=== PATIENT | male | born 1945 | race Caucasian/White ===

== ENCOUNTER → 2018-01-09 10:00 | Outpatient (CLI) | payer MEDICARE, SELFPAY ==
[2018-01-09 10:30] LABS: INR 1.8 (1.0-3.5); Prothrombin Time 17.6 sec (9.3-10.8)
== END ==
PROVIDERS: PCP Internal Medicine; Visit Provider Internal Medicine Cardiovascular Disease
DX: I48.0 Paroxysmal atrial fibrillation (principal); Z79.01 Long term (current) use of anticoagulants
CPT/HCPCS: 36415; 85610

== ENCOUNTER → 2018-01-22 09:30 | Outpatient (CLI) | payer MEDICARE, SELFPAY ==
[2018-01-22 09:57] LABS: INR 1.9 (1.0-3.5); Prothrombin Time 18.4 sec (9.3-10.8)
== END ==
PROVIDERS: PCP Internal Medicine; Visit Provider Internal Medicine Cardiovascular Disease
DX: I48.0 Paroxysmal atrial fibrillation (principal); Z79.01 Long term (current) use of anticoagulants
CPT/HCPCS: 36415; 85610

== ENCOUNTER → 2018-01-29 08:45 | Outpatient (CLI) | payer MEDICARE, SELFPAY ==
[2018-01-29 09:31] LABS: Prothrombin Time 24.1 sec (9.3-10.8)
[2018-01-29 09:33] LABS: INR 2.5 (1.0-3.5)
== END ==
PROVIDERS: PCP Internal Medicine; Visit Provider Internal Medicine Cardiovascular Disease
DX: I48.0 Paroxysmal atrial fibrillation (principal); Z79.01 Long term (current) use of anticoagulants
CPT/HCPCS: 36415; 85610

== ENCOUNTER 2018-02-20 08:50 | Outpatient (CLI) | payer MEDICARE, SELFPAY ==
[2018-02-20 09:25] LABS: INR 2.7 (1.0-3.5); Prothrombin Time 25.5 sec (9.3-10.8)
== END 2018-02-20 09:10 ==
PROVIDERS: PCP Internal Medicine; Referring Provider Internal Medicine; Visit Provider Internal Medicine Cardiovascular Disease
DX: I48.0 Paroxysmal atrial fibrillation (principal); Z79.01 Long term (current) use of anticoagulants
CPT/HCPCS: 36415; 85610

== ENCOUNTER 2018-03-26 11:29 | Outpatient (CLI) | payer MEDICARE, SELFPAY ==
[2018-03-26 12:30] LABS: Prothrombin Time 33.1 sec (9.3-10.8)
[2018-03-26 12:37] LABS: INR 3.5 (1.0-3.5)
== END 2018-03-26 11:49 ==
PROVIDERS: PCP Internal Medicine; Referring Provider Internal Medicine Cardiovascular Disease; Visit Provider Internal Medicine
DX: I48.92 Unspecified atrial flutter (principal); Z95.2 Presence of prosthetic heart valve; Z79.01 Long term (current) use of anticoagulants
CPT/HCPCS: 36415; 85610

== ENCOUNTER 2018-04-12 10:45 | Outpatient (CLI) | payer MEDICARE, SELFPAY ==
[2018-04-12 11:25] LABS: INR 1.7 (1.0-3.5); Prothrombin Time 16.5 sec (9.3-10.8)
== END 2018-04-12 11:05 ==
PROVIDERS: PCP Internal Medicine; Referring Provider Internal Medicine; Visit Provider Internal Medicine Cardiovascular Disease
DX: I48.92 Unspecified atrial flutter (principal); Z95.2 Presence of prosthetic heart valve; Z79.01 Long term (current) use of anticoagulants
CPT/HCPCS: 36415; 85610

== ENCOUNTER 2018-04-30 08:43 | Outpatient (CLI) | payer MEDICARE, SELFPAY ==
[2018-04-30 09:32] LABS: INR 2.2 (1.0-3.5); Prothrombin Time 20.7 sec (9.3-10.8)
== END 2018-04-30 09:03 ==
PROVIDERS: PCP Internal Medicine; Referring Provider Internal Medicine; Visit Provider Internal Medicine Cardiovascular Disease
DX: Z95.2 Presence of prosthetic heart valve (principal); I48.92 Unspecified atrial flutter; Z79.01 Long term (current) use of anticoagulants
CPT/HCPCS: 36415; 85610

== ENCOUNTER 2018-05-19 07:46 | Outpatient (CLI) | payer MEDICARE, SELFPAY ==
[2018-05-19 08:33] LABS: Prothrombin Time 20.4 sec (9.3-11.0)
== END 2018-05-19 08:06 ==
PROVIDERS: PCP Internal Medicine; Visit Provider Internal Medicine Cardiovascular Disease
DX: I48.92 Unspecified atrial flutter (principal); Z79.01 Long term (current) use of anticoagulants; Z95.2 Presence of prosthetic heart valve
CPT/HCPCS: 36415; 85610

== ENCOUNTER 2018-06-24 09:24 | Outpatient (CLI) | payer MEDICARE, SELFPAY ==
[2018-06-24 10:46] LABS: INR 2.4 (0.9-1.1)
== END 2018-06-24 09:44 ==
PROVIDERS: PCP Internal Medicine; Visit Provider Internal Medicine Cardiovascular Disease
DX: I48.92 Unspecified atrial flutter (principal); Z95.2 Presence of prosthetic heart valve
CPT/HCPCS: 36415; 85610

== ENCOUNTER 2018-08-18 08:44 | Outpatient (CLI) | payer MEDICARE, SELFPAY ==
[2018-08-18 09:11] LABS: Prothrombin Time 34.9 sec (9.3-11.0)
[2018-08-18 09:16] LABS: INR 3.4 (0.9-1.1)
== END 2018-08-18 09:04 ==
PROVIDERS: PCP Internal Medicine; Referring Provider Internal Medicine Cardiovascular Disease; Visit Provider Internal Medicine
DX: I48.92 Unspecified atrial flutter (principal); Z95.2 Presence of prosthetic heart valve
CPT/HCPCS: 36415; 85610

== ENCOUNTER 2018-08-28 10:05 | Outpatient (CLI) | payer MEDICARE, SELFPAY ==
[2018-08-28 10:43] LABS: INR 3.1 (0.9-1.1); Prothrombin Time 31.5 sec (9.3-11.0)
== END 2018-08-28 10:25 ==
PROVIDERS: PCP Internal Medicine; Referring Provider Internal Medicine Cardiovascular Disease; Visit Provider Internal Medicine
DX: I48.92 Unspecified atrial flutter (principal); Z95.2 Presence of prosthetic heart valve; Z79.01 Long term (current) use of anticoagulants
CPT/HCPCS: 36415; 85610

== ENCOUNTER 2018-09-15 08:19 | Outpatient (CLI) | payer MEDICARE, SELFPAY ==
[2018-09-15 09:30] LABS: INR 1.4 (0.9-1.1); Prothrombin Time 14.5 sec (9.3-11.0)
== END 2018-09-15 08:39 ==
PROVIDERS: PCP Internal Medicine; Referring Provider Internal Medicine; Visit Provider Internal Medicine Cardiovascular Disease
DX: I48.92 Unspecified atrial flutter (principal); Z95.2 Presence of prosthetic heart valve; Z79.01 Long term (current) use of anticoagulants
CPT/HCPCS: 36415; 85610

== ENCOUNTER 2018-10-07 09:20 | Outpatient (CLI) | payer MEDICARE, SELFPAY ==
[2018-10-07 10:15] LABS: INR 2.4 (0.9-1.1); Prothrombin Time 24.6 sec (9.3-11.0)
== END 2018-10-07 09:40 ==
PROVIDERS: PCP Internal Medicine; Referring Provider Internal Medicine; Visit Provider Internal Medicine Cardiovascular Disease
DX: I48.92 Unspecified atrial flutter (principal); Z95.2 Presence of prosthetic heart valve; Z79.01 Long term (current) use of anticoagulants
CPT/HCPCS: 36415; 85610

== ENCOUNTER 2018-11-10 08:31 | Outpatient (CLI) | payer MEDICARE, SELFPAY ==
[2018-11-10 09:07] LABS: Prothrombin Time 40.2 sec (9.3-11.0)
== END 2018-11-10 08:51 ==
PROVIDERS: PCP Internal Medicine; Visit Provider Internal Medicine Cardiovascular Disease
DX: Z79.01 Long term (current) use of anticoagulants (principal); I48.92 Unspecified atrial flutter; Z95.2 Presence of prosthetic heart valve
CPT/HCPCS: 36415; 85610

== ENCOUNTER 2018-11-28 07:55 | Outpatient (CLI) | payer MEDICARE, SELFPAY ==
[2018-11-28 08:48] LABS: Prothrombin Time 30.3 sec (9.3-11.0)
== END 2018-11-28 08:15 ==
PROVIDERS: Internal Medicine Cardiovascular Disease; PCP Internal Medicine; Referring Provider Internal Medicine; Visit Provider Internal Medicine
DX: I48.92 Unspecified atrial flutter (principal); Z95.2 Presence of prosthetic heart valve; Z79.01 Long term (current) use of anticoagulants
CPT/HCPCS: 36415; 85610

== ENCOUNTER 2018-12-23 09:46 | Outpatient (CLI) | payer MEDICARE, SELFPAY ==
[2018-12-23 11:13] LABS: INR 2.4 (0.9-1.1); Prothrombin Time 24.6 sec (9.3-11.0)
== END 2018-12-23 10:06 ==
PROVIDERS: PCP Internal Medicine; Visit Provider Internal Medicine Cardiovascular Disease
DX: I48.92 Unspecified atrial flutter (principal); Z95.2 Presence of prosthetic heart valve; Z79.01 Long term (current) use of anticoagulants
CPT/HCPCS: 36415; 85610

== ENCOUNTER 2019-01-21 09:32 | Outpatient (CLI) | payer MEDICARE, SELFPAY ==
[2019-01-21 10:49] LABS: Prothrombin Time 19.8 sec (9.3-11.0)
== END 2019-01-21 09:52 ==
PROVIDERS: PCP Internal Medicine; Referring Provider Internal Medicine; Visit Provider Internal Medicine Cardiovascular Disease
DX: I48.92 Unspecified atrial flutter (principal); Z79.01 Long term (current) use of anticoagulants; Z95.2 Presence of prosthetic heart valve
CPT/HCPCS: 36415; 85610

== ENCOUNTER 2019-02-24 09:49 | Outpatient (CLI) | payer MEDICARE, SELFPAY ==
[2019-02-24 10:42] LABS: INR 2.3 (0.9-1.1); Prothrombin Time 22.6 sec (9.3-11.0)
== END 2019-02-24 10:09 ==
PROVIDERS: PCP Internal Medicine; Visit Provider Internal Medicine Cardiovascular Disease
DX: I48.92 Unspecified atrial flutter (principal); Z79.01 Long term (current) use of anticoagulants
CPT/HCPCS: 36415; 85610

== ENCOUNTER 2019-03-25 09:04 | Outpatient (CLI) | payer MEDICARE, SELFPAY ==
[2019-03-25 10:18] LABS: INR 1.6 (0.9-1.1); Prothrombin Time 16.4 sec (9.3-11.0)
== END 2019-03-25 09:24 ==
PROVIDERS: PCP Internal Medicine; Visit Provider Internal Medicine Cardiovascular Disease
DX: I48.92 Unspecified atrial flutter (principal); Z79.01 Long term (current) use of anticoagulants
CPT/HCPCS: 36415; 85610

== ENCOUNTER 2019-04-06 07:48 | Outpatient (CLI) | payer MEDICARE, SELFPAY ==
[2019-04-06 08:33] LABS: INR 3.1 (0.9-1.1); Prothrombin Time 30.3 sec (9.3-11.0)
== END 2019-04-06 08:08 ==
PROVIDERS: PCP Internal Medicine; Referring Provider Internal Medicine; Visit Provider Internal Medicine Cardiovascular Disease
DX: I48.92 Unspecified atrial flutter (principal); Z79.01 Long term (current) use of anticoagulants
CPT/HCPCS: 36415; 85610

== ENCOUNTER 2019-05-04 10:20 | Outpatient (CLI) | payer MEDICARE, SELFPAY ==
[2019-05-04 10:53] LABS: INR 2.3 (0.9-1.1); Prothrombin Time 22.3 sec (9.3-11.0)
== END 2019-05-04 10:40 ==
PROVIDERS: PCP Internal Medicine; Referring Provider Internal Medicine; Visit Provider Internal Medicine Cardiovascular Disease
DX: I48.92 Unspecified atrial flutter (principal); Z79.01 Long term (current) use of anticoagulants
CPT/HCPCS: 36415; 85610

== ENCOUNTER 2019-06-02 12:27 | Emergency (ER) | payer MEDICARE, SELFPAY ==
[2019-06-02] VITALS (7 sets, daily range): BP systolic 96–121; BP diastolic 41–74; PULSE 74–78; RESP 16–20; TEMP 36.8–38.1; O2SAT 94–98
[2019-06-02] MEDS: Normal Saline 1,000 ML 1000 ML IV (13:00)
[2019-06-02 13:13] LABS: Abs Immature Grans 0.02 k/cumm (0.0-0.09); Absolute Basophil Count 0.01 k/cumm (0.0-0.2); Absolute Eosinophil Count 0.01 k/cumm (0.0-0.7); Absolute Lymphocyte Count 0.31 k/cumm (1.2-3.4); Absolute Monocyte Count 0.42 k/cumm (0.11-0.7); Absolute Neutrophil Count 3.99 k/cumm (1.2-6.7); Basophils % 0.2; Eosinophils % 0.2; HCT 35.5 % (40.0-50.0); HGB 12.7 g/dL (13.5-17.5); Immature Grans % 0.4; Lymphocytes % 6.5; Mean Corp. HGB Concentration 35.8 g/dL (32.0-36.0); Mean Corpuscular Hemoglobin 31.4 pg (27.0-33.0); Mean Corpuscular Volume 87.9 fL (80-95); Mean Platelet Volume 10.9 fL (8.0-11.0); Monocytes % 8.8; Neutrophils % 83.9; Platelet Count 105 x1000/uL (130-400); RBC 4.04 m/cumm (4.50-6.00); RBC Distribution Width 12.8 % (11.8-14.1); White Blood Cell Count 4.76 k/cumm (4.4-10.8)
[2019-06-02 14:03] LABS: ALT 49 U/L (16-63); AST 57 U/L (15-37); Albumin 2.7 g/dL (3.4-5.0); Alkaline Phosphatase 228 U/L (46-116); Anion Gap 9.7 mmol/L (3-11); BUN 28 mg/dL (7-18); Bilirubin, Total 2.5 mg/dL (0.2-1.0); CO2 27.3 mmol/L (21.0-32.0); CREATININE 1.37 mg/dL (0.70-1.30); Chloride 94 mmol/L (98-107); Estimated GFR 50.66 (mL/min/1.73m2); Glucose 209 mg/dL (74-106); Magnesium 1.7 mg/dL (1.8-2.4); Potassium 4.3 mmol/L (3.5-5.1); Sodium 131 mmol/L (136-145)
[2019-06-02 14:06] LABS: Troponin I < 0.05 ng/Ml (<0.06)
--- NOTE | 2019-06-02 14:48 | W.ED.GENAD ---
Discharge Plan Disposition Patient Disposition: HOME Condition: Improving Discharge Details Chief Complaint: GenMedical Clinical Impression: Sphenoid sinusitis, Headache Primary Care Provider: Brendan Bledsoe ED Provider: Laury Leslie Home Meds and New Rx's Prescriptions: New prednisone 20 mg tablet See Rx Instructions .ROUTE .COMPLEX Qty: 9 RF: 0 Continued warfarin [Coumadin] 2.5 MG tablet 2.5 mg PO DIRECTED RF: 0 aspirin [Aspirin Low-Strength] 81 MG tablet,chewable 81 mg PO DAILY RF: 0 amoxicillin 875 mg Tablet 875 mg PO TID RF: 0 Discharge Instructions Instructions: Sinusitis (ED), General Headache (ED) Additional Instructions: Take the antibiotics until finished. Take the steroids until finished. Drink plenty of fluids and get plenty of rest. Follow-up with your primary care doctor in the next 2 to 3 days. Return to the emergency department with any worsening or new concerning symptoms such as persistent fevers, worsening headache, dizziness or any other concerns. Discharge Data Discharge Date/Time-TO BE ENTERED AT DEPARTURE: 06/02/19 18:29 Discharge Physician: Laury Leslie Medical Decision Making 73-year-old male with a history of aortic stenosis and aortic valve replacement on Coumadin presents for headache and dizziness with ambulation resulting in falls over the last 5 days. Denies any report of injury. He states his headache is intermittent, stabbing and localized to 2 sides of the head, one behind L ear and one behind right ear. He states the pain lasts for approximately 10 seconds and then resolves but causes an involuntary twitch in his face due to the pain. Admits to feeling feverish. Admits to nasal congestion chronically but states he feels like this is been worse over the past few days. Patient appears uncomfortable, restless on stretcher. Vitals within normal limits. Normal ENT exam. Lungs clear. Abdomen nontender. No focal deficits. No meningeal signs. Patient referred for labs and imaging. INR therapeutic at 2.6. Urinalysis not impressive for UTI. CT head notes chronic changes status post craniectomy with encephalomalacia with new findings of sphenoid sinusitis. Chest x-ray noted increased pulmonary vasculature as well as left basilar opacity which may be atelectasis or infection. He has no complaint of cough, shortness of breath or chest pain so doubt pneumonia but antibiotics for sinus will cover for lung process. Patient was given IV fluids, Decadron, Compazine and Benadryl and had significant relief of pain. He developed a fever of 100.5, and was given Tylenol. Patient was able to ambulate around the ED and admitted to significant improvement and was able to ambulate without dizziness. He was requesting to go home. He has Augmentin at home which she is advised to finish. Will add steroids to help for the next several days. He is advised to follow-up with his primary care doctor for evaluation and to return here at any time if worse. Medical Records Medical records reviewed: Yes I reviewed the patient's medical records. Imaging Data Radiologic Study: Radiologist's impression: CT HEAD WO CLINICAL HISTORY: headache, r/o acute process TECHNIQUE: COMPARISON: No exams were available for comparison FINDINGS: Noncontrast cranial CT was performed. Note is made of a left temporal craniotomy with subjacent left temporal encephalomalacia. There is fluid density and with mixed increased attenuation and gas also present in sphenoid sinus raising the possibility of a sphenoid sinusitis. The paranasal sinuses and mastoid air cells are otherwise grossly clear. The orbital and temporal bone structures appear intact. No evidence of acute intracranial hemorrhage mass effect or midline shift. IMPRESSION: No evidence of acute intracranial process. Note is made of findings suggesting sphenoid sinusitis. XR Chest, 2 Views Exam date and time: 06/02/2019 4:04 PM Age: 73 years old Clinical indication: Other: Fatique, nasal congestion, R/O pneumonia TECHNIQUE: Imaging protocol: XR of the chest Views: 2 views. COMPARISON: No relevant prior studies available. FINDINGS: Lungs: Low lung volumes. Prominent, indistinct pulmonary vasculature. Hazy left basilar/retrocardiac opacity. Pleural space: Unremarkable. No pleural effusion. No pneumothorax. Heart/Mediastinum: Enlarged postsurgical cardiomediastinal silhouette. Vasculature: Tortuous thoracic aorta. Bones/joints: Unremarkable. IMPRESSION: 1. Pulmonary edema. 2. Left basilar/retrocardiac opacity consistent with edema, atelectasis, aspiration or infection. Lab Data Lab results reviewed: Yes I reviewed the patient's lab results. Labs: 06/02/19 16:10 Nasopharynx Influenza Types A,B Antigen - Final Laboratory Tests Range/Units 06/02/19 06/02/19 06/02/19 13:04 13:04 13:04 WBC (4.4-10.8) k/cumm 4.76 RBC (4.50-6.00) m/cumm 4.04 L Hgb (13.5-17.5) g/dL 12.7 L Hct (40.0-50.0) % 35.5 L MCV (80-95) fL 87.9 MCH (27.0-33.0) pg 31.4 MCHC (32.0-36.0) g/dL 35.8 RDW (11.8-14.1) % 12.8 Plt Count (130-400) x1000/uL 105 L MPV (8.0-11.0) fL 10.9 Immature Gran % 0.4 Neutrophils % 83.9 Lymphocytes % 6.5 Monocytes % 8.8 Eosinophils % 0.2 Basophils % 0.2 Absolute Neutrophils (1.2-6.7) k/cumm 3.99 Absolute Lymphocytes (1.2-3.4) k/cumm 0.31 L Absolute Monocytes (0.11-0.7) k/cumm 0.42 Absolute Eosinophils (0.0-0.7) k/cumm 0.01 Absolute Basophils (0.0-0.2) k/cumm 0.01 PT (9.3-11.0) sec 25.4 H INR (0.9-1.1) 2.6 H APTT (21.0-31.4) sec 37.9 H Sodium (136-145) mmol/L 131 L Potassium (3.5-5.1) mmol/L 4.3 Chloride (98-107) mmol/L 94 L Carbon Dioxide (21.0-32.0) mmol/L 27.3 Anion Gap (3-11) mmol/L 9.7 BUN (7-18) mg/dL 28 H Creatinine (0.70-1.30) mg/dL 1.37 H Estimated GFR/1.73 m2 (mL/min/1.73m2) 50.66 Glucose (74-106) mg/dL 209 H Lactate (0.6-1.4) mmol/L Calcium (8.5-10.1) mg/dL 9.0 Magnesium (1.8-2.4) mg/dL 1.7 L Total Bilirubin (0.2-1.0) mg/dL 2.5 H AST (15-37) U/L 57 H ALT (16-63) U/L 49 Alkaline Phosphatase (46-116) U/L 228 H Troponin I (<0.06) ng/Ml < 0.05 Total Protein (6.4-8.2) g/dL 6.0 L Albumin (3.4-5.0) g/dL 2.7 L Urine Color (Yellow) Urine Clarity (Clear) Urine pH (5-8) Ur Specific [place] (1.005-1.025) Urine Protein (Negative) mg/dL Urine Ketones (Negative) mg/dL Urine Blood (Negative) Urine Nitrite (Negative) Urine Bilirubin (Negative) Urine Urobilinogen (Up TO 0.2) EU/dL Ur Leukocyte Esterase (Negative) Urine RBC (0-2) HPF Urine WBC (0-5) HPF Ur Epithelial Cells (Negative) HPF Urine Crystals (Negative) HPF Urine Bacteria (Negative) HPF Urine Casts (Negative) LPF Urine Mucus (Negative) Urine Other (Negative) Ur Culture Indicated? Urine Glucose (Negative) mg/dL Range/Units 06/02/19 06/02/19 14:51 16:05 WBC (4.4-10.8) k/cumm RBC (4.50-6.00) m/cumm Hgb (13.5-17.5) g/dL Hct (40.0-50.0) % MCV (80-95) fL MCH (27.0-33.0) pg MCHC (32.0-36.0) g/dL RDW (11.8-14.1) % Plt Count (130-400) x1000/uL MPV (8.0-11.0) fL Immature Gran % Neutrophils % Lymphocytes % Monocytes % Eosinophils % Basophils % Absolute Neutrophils (1.2-6.7) k/cumm Absolute Lymphocytes (1.2-3.4) k/cumm Absolute Monocytes (0.11-0.7) k/cumm Absolute Eosinophils (0.0-0.7) k/cumm Absolute Basophils (0.0-0.2) k/cumm PT (9.3-11.0) sec INR (0.9-1.1) APTT (21.0-31.4) sec Sodium (136-145) mmol/L Potassium (3.5-5.1) mmol/L Chloride (98-107) mmol/L Carbon Dioxide (21.0-32.0) mmol/L Anion Gap (3-11) mmol/L BUN (7-18) mg/dL Creatinine (0.70-1.30) mg/dL Estimated GFR/1.73 m2 (mL/min/1.73m2) Glucose (74-106) mg/dL Lactate (0.6-1.4) mmol/L 1.0 Calcium (8.5-10.1) mg/dL Magnesium (1.8-2.4) mg/dL Total Bilirubin (0.2-1.0) mg/dL AST (15-37) U/L ALT (16-63) U/L Alkaline Phosphatase (46-116) U/L Troponin I (<0.06) ng/Ml Total Protein (6.4-8.2) g/dL Albumin (3.4-5.0) g/dL Urine Color (Yellow) Olive Urine Clarity (Clear) Clear Urine pH (5-8) 5.5 Ur Specific [place] (1.005-1.025) 1.015 Urine Protein (Negative) mg/dL 30 H Urine Ketones (Negative) mg/dL Trace H Urine Blood (Negative) Moderate H Urine Nitrite (Negative) Negative Urine Bilirubin (Negative) Small H Urine Urobilinogen (Up TO 0.2) EU/dL 4.0 H Ur Leukocyte Esterase (Negative) Negative Urine RBC (0-2) HPF 5-10 H Urine WBC (0-5) HPF 3-5 Ur Epithelial Cells (Negative) HPF Few Urine Crystals (Negative) HPF Few amorphous Urine Bacteria (Negative) HPF Negative Urine Casts (Negative) LPF Negative Urine Mucus (Negative) Negative Urine Other (Negative) Negative Ur Culture Indicated? No Urine Glucose (Negative) mg/dL Negative ECG Data Attestation: I personally reviewed and interpreted this ECG (s) as follows: Interpretation: rate of 79, junctional? undetermined rhythm, right bundle branch block. No old EKG to compare. QTc 484. HPI General Mode of arrival: ambulatory. Date/Time Provider Initiated Documentation: 06/02/19 13:33. Limitations to Documentation: no limitations. Information obtained by: patient. History of Present Illness 73 year old M presents to the emergency department with the chief complaint of headache and dizziness; walking off balance, and is localized to the head. Patient reports no radiation. Patient started experiencing this day(s) (8) and it has been constant. No relieving factors improve symptom(s), Patient notes headaches, loss of appetite and weakness; denies confusion, chest pain, cough, diaphoresis, fever/chills, malaise, nausea/vomiting, rash, seizure, shortness of breath and syncope. Patient did receive the following treatments prior to arrival, other (antibiotics) Related Data Home Medications Medication Instructions Recorded Confirmed aspirin [Aspirin Low-Strength] 81 mg PO DAILY 11/15/17 06/02/19 warfarin [Coumadin] 2.5 mg PO DIRECTED 11/15/17 06/02/19 amoxicillin 875 mg PO TID 06/02/19 06/02/19 prednisone See Rx Instructions .ROUTE 06/02/19 .COMPLEX #9 tab Previous Rx's Medication Instructions Recorded prednisone See Rx Instructions .ROUTE 06/02/19 .COMPLEX #9 tab Allergies Allergy/AdvReac Type Severity Reaction Status Date / Time No Known Allergies Allergy Unverified 06/02/19 12:47 General Stated Complaint: GenMedical MARIANELA: 3 Review of Systems All systems reviewed & are unremarkable except as noted in HPI and below Constitutional Constitutional: Reports as per HPI, Denies chills, Denies fever(s), Reports frequent falls (Recently with dizziness over the past few days, no known injury) and Reports headache(s) Eyes Eyes: Denies blurry vision ENT Ears, Nose, Mouth, and Throat: Reports dizziness, Reports headache(s), Reports nasal congestion, Denies nasal discharge, Denies sore throat and Denies throat swelling Cardiovascular Cardiovascular: Denies chest pain and Denies dyspnea Respiratory Respiratory: Denies cough and Denies dyspnea Gastrointestinal Gastrointestinal: Denies abdominal pain, Denies diarrhea and Denies vomiting Genitourinary Genitourinary: Denies hematuria and Denies dysuria Musculoskeletal Musculoskeletal: Denies back pain and Denies numbness Integumentary/Breasts Skin/Breast: Denies lesions and Denies rash Neurologic Neurologic: Reports dizziness, Reports frequent falls (Recently with dizziness over the past few days, no known injury), Reports headache(s), Reports lack of coordination, Denies focal weakness and Denies numbness Allergic/Immunologic Allergic/Immunologic: Denies throat swelling [facility] Medical History Aortic stenosis (Chronic) Brain tumor (benign) (Acute) Surgical History H/O aortic valve replacement (Acute) Status post craniectomy (Acute) 1960 Social History Smoking/Tobacco Use Status: Never Alcohol Intake: never Drug use: Never Substance use type: does not use Do you feel safe at home: Yes Do you feel safe in your relationship?: Yes Exam Const General: cooperative and uncomfortable Orientation: alert, awake and oriented x3 HENMT Head: normal to inspection Ears: hearing grossly normal bilaterally, external ears normal and TM's normal bilaterally General nose exam: external nose normal Face and sinus: normal facial exam and sinuses nontender Mouth: oral mucosae normal Teeth and gingiva: dentition normal Throat: posterior oropharynx normal Eyes General: appearance normal, both eyes and all related structures Eyelids: eyelids normal EOM: EOM intact bilaterally Neck Neck: normal visual inspection Lymphatic: no lymphadenopathy noted Chest Chest: normal inspection of the chest Resp Effort & Inspection: normal respiratory effort and able to speak in complete sentences Auscultation: clear to auscultation bilaterally Cardio Rate: regular rate Rhythm: regular rhythm GI Inspection: normal to inspection Palpation: soft, not firm, no guarding, no hepatosplenomegaly, no masses and nontender Auscultation: normal bowel sounds Skin General skin exam: no rashes or lesions noted Neuro General: alert, awake, oriented x3 and moves all extremities Cranial Nerves: CN's II-XI intact bilaterally Cognition: normal cognition Speech: speech normal Gait: normal gait Motor: muscle tone normal throughout and strength 5/5 throughout Sensory Exam: no sensory deficits noted Extrem General: normal to inspection, full ROM and normal capillary refill Psych Appearance: grossly normal Mental Status: mental status grossly normal Speech and Movement: speech and movement normal Affect: normal affect Thought Process: normal Course Vital Signs Vital signs: Vital Signs Temperature 98.8 F 06/02/19 12:45 Pulse 78 06/02/19 12:45 Respiratory Rate 20 06/02/19 12:45 Blood Pressure 105/60 06/02/19 12:45 Pulse Oximetry 94 L 06/02/19 12:45 Temperature 98.8 F 06/02/19 12:45 Temperature Source Temporal Artery Scan 06/02/19 12:45 Pulse 74 06/02/19 14:02 Respiratory Rate 18 06/02/19 14:02 Respiratory Effort Non-Labored 06/02/19 14:03 Respiratory Depth Normal 06/02/19 14:03 Respiratory Pattern Normal 06/02/19 14:03 Blood Pressure 121/71 06/02/19 14:02 Pulse Oximetry 98 06/02/19 14:02 Oxygen Delivery Method Room Air 06/02/19 14:02 Oxygen Flow Rate 0 06/02/19 14:02 Pain Level 9 06/02/19 14:02 Lab/Test Results Lab/Test Results: Laboratory Tests Range/Units 06/02/19 06/02/19 13:04 13:04 WBC (4.4-10.8) k/cumm 4.76 RBC (4.50-6.00) m/cumm 4.04 L Hgb (13.5-17.5) g/dL 12.7 L Hct (40.0-50.0) % 35.5 L MCV (80-95) fL 87.9 MCH (27.0-33.0) pg 31.4 MCHC (32.0-36.0) g/dL 35.8 RDW (11.8-14.1) % 12.8 Plt Count (130-400) x1000/uL 105 L MPV (8.0-11.0) fL 10.9 Immature Gran % 0.4 Neutrophils % 83.9 Lymphocytes % 6.5 Monocytes % 8.8 Eosinophils % 0.2 Basophils % 0.2 Absolute Neutrophils (1.2-6.7) k/cumm 3.99 Absolute Lymphocytes (1.2-3.4) k/cumm 0.31 L Absolute Monocytes (0.11-0.7) k/cumm 0.42 Absolute Eosinophils (0.0-0.7) k/cumm 0.01 Absolute Basophils (0.0-0.2) k/cumm 0.01 Sodium (136-145) mmol/L 131 L Potassium (3.5-5.1) mmol/L 4.3 Chloride (98-107) mmol/L 94 L Carbon Dioxide (21.0-32.0) mmol/L 27.3 Anion Gap (3-11) mmol/L 9.7 BUN (7-18) mg/dL 28 H Creatinine (0.70-1.30) mg/dL 1.37 H Estimated GFR/1.73 m2 (mL/min/1.73m2) 50.66 Glucose (74-106) mg/dL 209 H Calcium (8.5-10.1) mg/dL 9.0 Magnesium (1.8-2.4) mg/dL 1.7 L Total Bilirubin (0.2-1.0) mg/dL 2.5 H AST (15-37) U/L 57 H ALT (16-63) U/L 49 Alkaline Phosphatase (46-116) U/L 228 H Troponin I (<0.06) ng/Ml < 0.05 Total Protein (6.4-8.2) g/dL 6.0 L Albumin (3.4-5.0) g/dL 2.7 L
[2019-06-02 15:20] LABS: Bilirubin Small (Negative); Blood Moderate (Negative); Clarity Clear (Clear); Glucose Negative (Negative); Ketones Trace mg/dL (Negative); Leukocyte Esterase Negative (Negative); Nitrite Negative (Negative); Specific Gravity 1.015 (1.005-1.025); pH 5.5 (5-8)
[2019-06-02 15:25] LABS: Bacteria Negative HPF (Negative); C & S Indicated? No; Casts Negative LPF (Negative); Crystals Few Amorphous HPF (Negative); Epithelial Cells Few HPF (Negative); Mucus Negative (Negative); Other Cells Negative (Negative)
--- NOTE | 2019-06-02 15:55 | DI.CT_ITS ---
EXAM: CT HEAD WO CLINICAL HISTORY: headache, r/o acute process TECHNIQUE: COMPARISON: No exams were available for comparison FINDINGS: Noncontrast cranial CT was performed. Note is made of a left temporal craniotomy with subjacent lef t temporal encephalomalacia. There is fluid density and with mixed increased attenuation and gas als o present in sphenoid sinus raising the possibility of a sphenoid sinusitis. The paranasal sinuses a nd mastoid air cells are otherwise grossly clear. The orbital and temporal bone structures appear in tact. No evidence of acute intracranial hemorrhage mass effect or midline shift. IMPRESSION: No evidence of acute intracranial process. Note is made of findings suggesting sphenoid sinusitis.
--- NOTE | 2019-06-02 15:59 | DI.RAD_ITS ---
EXAM: XR CHEST 2V PA LATERAL CLINICAL HISTORY: fatigue, nasal congestion, r/o pneumonia TECHNIQUE: COMPARISON: No exams were available for comparison FINDINGS: There is a poor inspiration which show crowds the lung markings somewhat. No definite infiltrate se en but question and hazy opacities in both lung bases. Cardiac size within normal limits. Aortic va lve prosthesis noted. No pleural effusion seen. IMPRESSION: Question faint basilar infiltrates, follow-up film may be obtained if clinically indicated.
[2019-06-02] MEDS: Normal Saline 500 ML IV (16:15)
[2019-06-02] MEDS: Normal Saline 50 ML 200 ML (16:16)
[2019-06-02] MEDS: Dexamethasone 10 MG/ML VIAL IVP (16:17)
[2019-06-02] MEDS: Prochlorperazine 10 MG/2 ML VIAL IVP (16:17)
--- NOTE | 2019-06-02 16:17 | DI.VRAD_ITS ---
PROCEDURE INFORMATION: Exam: XR Chest, 2 Views Exam date and time: 06/02/2019 4:04 PM Age: 73 years old Clinical indication: Other: Fatique, nasal congestion, R/O pneumonia TECHNIQUE: Imaging protocol: XR of the chest Views: 2 views. COMPARISON: No relevant prior studies available. FINDINGS: Lungs: Low lung volumes. Prominent, indistinct pulmonary vasculature. Hazy left basilar/retrocardiac opacity. Pleural space: Unremarkable. No pleural effusion. No pneumothorax. Heart/Mediastinum: Enlarged postsurgical cardiomediastinal silhouette. Vasculature: Tortuous thoracic aorta. Bones/joints: Unremarkable. IMPRESSION: 1. Pulmonary edema. 2. Left basilar/retrocardiac opacity consistent with edema, atelectasis, aspiration or infection. Dictated and Authenticated by: Hao Grayson MD. Ordering:RAYMOND Schaeffer MD
[2019-06-02] MEDS: diphenhydrAMINE 50 MG/ML VIAL 25 MG IVP (16:18)
[2019-06-02 16:19] LABS: INR 2.6 (0.9-1.1); PTT Activated 37.9 sec (21.0-31.4); Prothrombin Time 25.4 sec (9.3-11.0)
[2019-06-02] MEDS: Acetaminophen 500 MG TAB 1000 MG PO (17:14)
--- NOTE | 2019-06-02 17:51 | NUR.NOTE ---
1750-Ambulation trial: pt ambulates with steady gait. pt a/ox4, states headache is improved but unable to rate pain on pain scale. pt states he does not feel comfortable driving a vehicle though stating he still feels fuzzy in the brain. notifeid. Nursing Note:
== END 2019-06-02 18:29 | disposition home or self-care (01) ==
PROVIDERS: Emergency Provider Physician Assistant; PCP Internal Medicine
DX: J01.30 Acute sphenoidal sinusitis, unspecified (principal); R51 Headache; R42 Dizziness and giddiness; R50.9 Fever, unspecified; Z98.890 Other specified postprocedural states; D33.2 Benign neoplasm of brain, unspecified
CPT/HCPCS: 36415; 80053; 87449; 93005; 96361; 96374; 96375; 99285; 70450; 71046; 81003; 81015; 83605; 83735; 84484; 85025; 85610; 85730; 93010; J0780; J1100; J1200

== ENCOUNTER 2019-06-08 16:04 | Emergency (ER) | payer OTHER, MEDICARE, SELFPAY ==
[2019-06-08] VITALS (72 sets, daily range): BP systolic 84–120; BP diastolic 37–69; PULSE 48–95; RESP 12–33; TEMP 37.5–39; O2SAT 89–99
[2019-06-08] MEDS: Normal Saline 1,000 ML 1000 ML IV ×2 (16:39→20:12)
[2019-06-08] MEDS: Omnipaque 350 MG/ML 100 ML BTL IJ (16:41)
[2019-06-08 16:49] LABS: Lactate 2.1 mmol/L (0.6-1.4)
[2019-06-08 17:00] LABS: Abs Immature Grans 0.02 k/cumm (0.0-0.09); Absolute Lymphocyte Count 0.41 k/cumm (1.2-3.4); Absolute Monocyte Count 0.31 k/cumm (0.11-0.7); Absolute Neutrophil Count 5.91 k/cumm (1.2-6.7); HCT 33.7 % (40.0-50.0); HGB 11.7 g/dL (13.5-17.5); Immature Grans % 0.3 %; Lymphocytes % 6.2; Mean Corp. HGB Concentration 34.7 g/dL (32.0-36.0); Mean Corpuscular Hemoglobin 31.2 pg (27.0-33.0); Mean Corpuscular Volume 89.9 fL (80-95); Mean Platelet Volume 11.4 fL (8.0-11.0); Monocytes % 4.7; Neutrophils % 88.8; Platelet Count 128 x1000/uL (130-400); RBC 3.75 m/cumm (4.50-6.00); RBC Distribution Width 13.2 % (11.8-14.1); White Blood Cell Count 6.65 k/cumm (4.4-10.8)
[2019-06-08 17:03] LABS: PTT Activated 41.8 sec (21.0-31.4); Prothrombin Time 44.8 sec (9.3-11.0)
[2019-06-08 17:04] LABS: ALT 43 U/L (16-63); AST 32 U/L (15-37); Albumin 2.1 g/dL (3.4-5.0); Alkaline Phosphatase 134 U/L (46-116); Anion Gap 6.6 mmol/L (3-11); BUN 26 mg/dL (7-18); Bilirubin, Total 2.6 mg/dL (0.2-1.0); CO2 26.4 mmol/L (21.0-32.0); CREATININE 1.35 mg/dL (0.70-1.30); Calcium 8.6 mg/dL (8.5-10.1); Chloride 95 mmol/L (98-107); Estimated GFR 51.52 (mL/min/1.73m2); Glucose 361 mg/dL (74-106); Lipase 199 U/L (73-393); Potassium 4.8 mmol/L (3.5-5.1); Sodium 128 mmol/L (136-145); Total Protein 5.6 g/dL (6.4-8.2)
[2019-06-08 17:15] LABS: INR 4.6 (0.9-1.1)
[2019-06-08] MEDS: MORPHine 10 MG/ML VIAL ×2 (17:29→19:50)
[2019-06-08] MEDS: Normal Saline Flush 10 ML SYR IVP (17:35)
[2019-06-08 18:00] LABS: Bilirubin Negative (Negative); Blood Large (Negative); Clarity Clear (Clear); Glucose 500 mg/dL (Negative); Ketones Negative (Negative); Leukocyte Esterase Negative (Negative); Nitrite Negative (Negative); pH 5.5 (5-8)
[2019-06-08 18:07] LABS: Bacteria Negative HPF (Negative); C & S Indicated? C&S Done As Ordered; Casts Negative LPF (Negative); Crystals Negative HPF (Negative); Epithelial Cells Few HPF (Negative); Mucus Negative (Negative)
--- NOTE | 2019-06-08 18:55 | DI.CT_ITS ---
EXAM: CT HEAD WO/W CLINICAL HISTORY: fever, confusion. r/o dura venous sinus thrombosis TECHNIQUE: Non-contrast followed by IV contrast during the venous phase. COMPARISON: CT HEAD WO from 06/02/2019 FINDINGS: The noncontrast exam shows a large area of encephalomalacia in the left frontal lobe, unchanged. Th ere is a small old right basal ganglia lacunar infarct. There are areas of increased attenuation in t he bilateral frontal lobes which likely represent artifacts. No acute infarct or mass is seen. Post contrast images show patent dural venous sinuses. No abnormal enhancing lesions are seen. There is no acute skull fracture. A left temporal craniotomy is again noted. The sinuses and mastoid air delbert ls are clear where visualized. IMPRESSION: No acute abnormality. No evidence of dural venous sinus thrombosis.
--- NOTE | 2019-06-08 19:15 | DI.CT_ITS ---
EXAM: CT CHEST/ABD/PEL W CLINICAL HISTORY: fall left sided rib/abd pain, on coumadin TECHNIQUE: Post IV contrast. Exam is limited by patient motion. COMPARISON: No exams were available for comparison FINDINGS: CHEST CT: No pneumothorax, rib or thoracic spine fracture is seen. There are no pleural or pericardial effusio ns. An aortic valve prosthesis and coronary artery calcifications are seen. The ascending aorta is dilated at 4.5 cm. There is no evidence of dissection. Abdomen and pelvic CT: The spleen is enlarged. No liver, spleen or renal injury is seen. The pancreas and adrenals are unr emarkable. There is no evidence of bowel dilatation, free air or free fluid. There is a nondisplace d fracture through the ju inferior endplate of L1. Severe degenerative disc changes are seen at L2-3. No additional fractures are seen. Bladder shows wall thickening but appears intact. There is a small fatty containing umbilical hernia. There are bilateral fat containing inguinal hernias. IMPRESSION: Nondisplaced non compressed fracture at the inferior end plate of L1. Splenomegaly. No evidence of i nternal organ injury.
[2019-06-08] MEDS: PIPERACILLIN/TAZO 3.375 GM in Normal Saline 50 ML IVPB (19:27)
--- NOTE | 2019-06-08 19:34 | DI.VRAD_ITS ---
PROCEDURE INFORMATION: Exam: CT Head Without And With Contrast Exam date and time: 06/08/2019 6:42 PM Age: 73 years old Clinical indication: Altered mental status/memory loss and other: Fever; Confusion or disorientation; Patient HX: Fever, confusion; Additional info: R/O dura venous sinus thrombosis TECHNIQUE: Imaging protocol: Computed tomography of the head without and with intravenous contrast. COMPARISON: CT HEAD WO 06/02/2019 3:55 PM FINDINGS: Brain: Chronic left temporal encephalomalacic changes. Chronic small right basal ganglia lacunar infarct. Small focus of parenchymal base hyperattenuation within an anterior left frontal gyrus (series 2 image 31), with questionable enhancement. No definite evidence of acute intracranial hemorrhage. Visualized dural venous sinuses are unremarkable. No extra-axial fluid collection. No evidence of mass effect or midline shift. Marino-white matter differentiation is normal. Ventricles: Mild prominence of the ventricles and sulci, most likely attributed to parenchymal volume loss. Bones/joints: Chronic left pterion craniotomy defect. No acute fracture. Sinuses: Unremarkable as visualized. Mastoid air cells: Unremarkable. Soft tissues: Unremarkable. IMPRESSION: 1. Small focus of parenchymal based hyperattenuation within an anterior left frontal gyrus with questionable enhancement. Etiology unknown. Recommend further evaluation with MRI brain, with and without contrast. 2. Dural venous sinuses are unremarkable. 3. Chronic findings, as above. Dictated and Authenticated by: Daniel Curtis MD. Ordering:TIM Ward MD
[2019-06-08] MEDS: VANCOMYCIN 2,000 MG in Normal Saline 500 ML 333.3333 MG IVPB (19:50)
[2019-06-08] MEDS: Omnipaque 350 MG/ML 50 ML BTL IJ (20:06)
--- NOTE | 2019-06-08 20:47 | W.ED.GENAD ---
Discharge Plan Disposition Patient Disposition: [facility] Condition: Fair Discharge Details Chief Complaint: Fever Clinical Impression: Fever Primary Care Provider: Brendan Bledsoe ED Provider: Sylvia Lala Home Meds and New Rx's Prescriptions: No Action warfarin [Coumadin] 2.5 MG tablet 2.5 mg PO DIRECTED RF: 0 aspirin [Aspirin Low-Strength] 81 MG tablet,chewable 81 mg PO DAILY RF: 0 metoprolol tartrate 100 mg Tablet 100 mg PO BID RF: 0 simvastatin 80 mg Tablet 40 mg PO DAILY RF: 0 timolol 0.5 % Drops 1 drp ophthalmic (eye) HS RF: 0 fluticasone furoate 50 mcg/actuation Blister With Device 1 inh INHALATION BID RF: 0 brimonidine 0.2 % Drops 1 drp ophthalmic (eye) HS RF: 0 Medical Decision Making Is a 73-year-old patient presenting to the emergency room for continued fevers. Patient was recently evaluated in the emergency room on 02 June ultimately diagnosed with a sinus infection treated with Augmentin and prednisone. Patient reports continued ill feeling despite use of antibiotic. Patient reports persistent temperatures of 102 throughout the course of the week. Reports worsening malaise and fatigue. Patient reports weakness and difficulty ambulating around his house. Patient denies significant headache or neck pain. Denies vision change. Denies significant sinus pain. Does report mild oral discomfort. Mild sore throat. Patient is complaining of left sided trunk and abdominal pain near the left flank. Patient denies focal urinary changes. He does report some difficulty with incontinence due to getting to the bathroom. Patient reports weight loss and decreased appetite and oral intake. Decreased fluid intake. Decreased output of urine and stool. Denies any diarrhea. Denies abdominal distention. Patient denies any rash. Denies cough, difficulty breathing shortness of breath or wheezing. Denies chest pain. Patient presents to the emergency room appearing ill, with a temperature 101.5. On exam patient has oral thrush, pharyngeal erythema. Patient's breath sounds are clear. Patient has no tachypnea or increased respiratory effort. Patient does have left-sided rib tenderness as well as left upper and lower abdominal pain with palpation and mild left flank pain with palpation. Patient does have instrumentation specialist strength intact and equal bilaterally. Weakness with straight leg raise bilaterally. No focal rashes. No distal edema bilaterally. Patient's neurologic exam is normal of his cranial nerves however his responses are somewhat slow. He is alert and oriented x3. He does have occasional word finding difficulty. When prompted patient is able to find appropriate words. Patient speech is clear. Labs ordered, CT imaging of head chest abdomen and pelvis ordered. Patient's labs do not reveal leukocytosis. Patient does have an INR 4.6 which is significantly changed from his INR of 2.6 on the . Patient sodium is 128. BUN and creatinine stable. Blood sugar increased to 361 with associated glucose in the urine. Patient is total bili 2.6 which is not significantly changed from his baseline. Patient's lactate is 2.1. IV fluids ordered. Patient's rapid strep and flu testing are both negative. Patient CT head reveals a small focus of parenchymal-based hyperattenuation within the anterior left frontal gyrus with questionable enhancement. Etiology is unknown. Recommended further evaluation with brain MRI with and without contrast. Dural venous sinuses are unremarkable for thrombosis. Patient CT chest reveals no acute findings. Nodule in the left lobe of the thyroid. Ascending aorta is dilated to 4.5 cm. Left pleural effusion noted is minute. Patient CT of his abdomen reveals a nondisplaced fracture through the anterio inferior aspect of L1. Splenomegaly is present. Perinephric stranding of fat which could have several possible etiologies including scarring third spacing and inflammatory process or infection is present. Patient's urinalysis is not consistent with urinary tract infection at this time. Discussed with the hospitalist Dr. Page who does not feel comfortable this patient's admission and feels he requires tertiary care center. Spoke with neurosurgery for consult on brain findings. They are unable to comment on the possibility of brain abscess until MRI is performed. They recommend of MICU admission. Spoke with critical care team at [facility] who will accept this patient's admission. They recommended consideration of adding pressors for his current blood pressure. Accepting doctor is José Chambers from critical care team. With the assistance of Dr. Gunn norepinephrine was started at 4 mcg/min Prior to the initiation of norepinephrine patient is noted to be in A. fib which is new in onset. Patient's previous EKG reveals a right bundle branch block. At this time EKG was performed and EKG is revealing A. fib heart rate of 66. This was reviewed with Dr. Gunn. [facility] General Date/Time Provider Initiated Documentation: 06/08/19 16:05. HPI Narrative: Is a 73-year-old patient presenting for complaints of malaise and fever. Patient reports he was had onset of illness prior to . Patient was seen on 06/02 for complaints of malaise and fever and ultimately was diagnosed with a sinus infection. Patient returns for continued malaise now associated with increased weakness. Patient having difficulty getting off of his couch for the last week. Patient reports he is been unable to get up stairs. Patient reports minimal headache. No complaints of neck pain. No significant cough. Patient reports fevers up to 102 at home despite use of antibiotics and prednisone. Patient is complaining of left-sided pain through his trunk and abdomen. Patient does report a fall approximately 1 week ago landing on his left side. Patient attributes his fall to a knee which is having chronic issues and he is following up in [facility] for this reason. Patient reports this left-sided abdominal pain is very bothersome and continues to persist throughout the week has had no improvement in pain. Patient is on a blood thinner. Patient does report shaking chills at home. Patient has had decreased p.o. intake. Decreased appetite. Decreased bowel movements and urination is eased in taking less. Patient denies dysuria, urgency or frequency. At this time patient is primarily complaining of malaise, fever and weakness in addition to the left-sided trunk and abdominal pain. Related Data Home Medications Medication Instructions Recorded Confirmed aspirin [Aspirin Low-Strength] 81 mg PO DAILY 11/15/17 06/08/19 warfarin [Coumadin] 2.5 mg PO DIRECTED 11/15/17 06/08/19 brimonidine 1 drp OPHTHALMIC (EYE) HS 06/08/19 06/08/19 fluticasone furoate 1 inh INHALATION BID 06/08/19 06/08/19 metoprolol tartrate 100 mg PO BID 06/08/19 06/08/19 simvastatin 40 mg PO DAILY 06/08/19 06/08/19 timolol 1 drp OPHTHALMIC (EYE) HS 06/08/19 06/08/19 Allergies Allergy/AdvReac Type Severity Reaction Status Date / Time No Known Allergies Allergy Unverified 06/08/19 16:30 General Stated Complaint: Fever MARIANELA: 2 Review of Systems All systems reviewed & are unremarkable except as noted in HPI and below Constitutional Constitutional: Reports chills, Reports fatigue, Reports fever(s), Reports headache(s), Reports malaise, Reports poor appetite and Reports weakness ENT Ears, Nose, Mouth, and Throat: Denies otalgia, Reports headache(s), Denies nasal congestion, Denies neck pain, Denies sinus pain, Denies sinus pressure and Reports sore throat Cardiovascular Cardiovascular: Denies chest pain, Denies palpitations and Denies dyspnea on exertion Respiratory Respiratory: Denies cough and Denies dyspnea on exertion Gastrointestinal Gastrointestinal: Reports abdominal pain, Denies diarrhea, Denies nausea and Denies vomiting Genitourinary Genitourinary: Denies dysuria, Denies urinary frequency and Denies urinary urgency Musculoskeletal Musculoskeletal: Denies neck pain Integumentary/Breasts Skin/Breast: Denies rash Neurologic Neurologic: Reports headache(s) and Reports weakness Endocrine Endocrine: Reports fatigue and Denies palpitations [facility] Medical History Aortic stenosis (Chronic) Brain tumor (benign) (Acute) Social History Smoking/Tobacco Use Status: Never Alcohol Intake: never Drug use: Never Substance use type: does not use Do you feel safe at home: Yes Do you feel safe in your relationship?: Yes Exam Narrative Exam Narrative: CONST: Ill appearing patient, in no acute distress. Dehydrated appearing. Alert and oriented x3 HENMT: Head nomocephalic, normal to inspection. Atraumatic. Hearing grossly normal. External ear canal no erythema or swelling. TM normal bilaterally. Nose normal to inspection. No rhinnorhea. Normal facial exam. Oral mucosa exam reveals oral thrush and pharyngeal erythema. Tounge erythema, mild cracking. Dentition normal. Erythema to posterior oropharynx. Uvula midline. EYES: General normal appearance. Alignment normal. Eyelids normal. Conjunctiva normal. Sclera normal. PERRL. NECK: Normal visual inspection. FROM. No lymphadenopathy. Trachea midline. No Midline tenderness. No obvious meningeal signs CHEST: Normal insepection of the chest. Left-sided chest tenderness along the lateral inferior ribs. RESP: Normal respiratory effort. Speaking full sentences. No cough. No wheezing. No retractions. Clear to auscaltation. Breath sound equal and present bilaterally. CARDIO: No JVD. Normal PMI. Regular Rate. Regular Rhythm. Normal peripheral pulses. GI: Normal inspection of abdomen. No distension. Soft. Tenderness to the left upper and mild left lower quadrant. Bowel sounds present in all 4 quadrants. No rebound. No gaurding. MUSCULOSKELETAL: Strength in tact with instrumentation specialist strength bilaterally as well as with plantar and dorsiflexion bilaterally. Distal neurovascularly intact. Sensation intact distally. Significant left knee effusion. Weakness with right straight leg raise bilaterally SKIN: Normal. Dry. No rashes. NEURO: Alert and awake. Speech clear. Patient does have some difficulty with word finding. Alert and oriented x 3. Speech is clear. Cranial nerves intact as tested III - XI. Normal [id number] test. Response is slow. No Nystagmus. Gait normal. Strength intact in all extremities. Sensation intact in all extremities. PSYCH: Normal affect. Cooperative. Course Vital Signs Vital signs: Vital Signs Temperature 38.6 C H 06/08/19 16:12 Pulse 65 06/08/19 16:12 Respiratory Rate 24 06/08/19 16:12 Blood Pressure 100/53 L 06/08/19 16:12 Pulse Oximetry 96 06/08/19 16:12 Temperature 38.6 C H 06/08/19 16:12 Temperature Source Temporal Artery Scan 06/08/19 16:12 Pulse 57 L 06/08/19 20:31 Pulse 62 06/08/19 18:31 Respiratory Rate 25 H 06/08/19 18:31 Respiratory Effort 06/08/19 16:12 Blood Pressure 103/56 L 06/08/19 20:31 Blood Pressure Mean 68 06/08/19 20:31 Blood Pressure Position Supine 06/08/19 16:12 Pulse Oximetry 99 06/08/19 20:35 Oxygen Delivery Method Room Air 06/08/19 16:12 Oxygen Flow Rate 0 06/08/19 16:12 Pain Level 7 06/08/19 19:50 Lab/Test Results Lab/Test Results: 06/08/19 17:25 Urine - Clean Catch Urine Culture - Pending 06/08/19 16:55 Nasopharynx Influenza Types A,B Antigen - Final 06/08/19 16:50 Blood Blood Culture - Pending 06/08/19 17:03 Blood Blood Culture - Pending 06/08/19 16:20 Pharynx Streptococcus Screen ([facility]A) - Pending Laboratory Tests Range/Units 06/08/19 06/08/19 06/08/19 16:27 16:30 16:30 WBC (4.4-10.8) k/cumm 6.65 RBC (4.50-6.00) m/cumm 3.75 L Hgb (13.5-17.5) g/dL 11.7 L Hct (40.0-50.0) % 33.7 L MCV (80-95) fL 89.9 MCH (27.0-33.0) pg 31.2 MCHC (32.0-36.0) g/dL 34.7 RDW (11.8-14.1) % 13.2 Plt Count (130-400) x1000/uL 128 L MPV (8.0-11.0) fL 11.4 H Immature Gran % % 0.3 Neutrophils % 88.8 Lymphocytes % 6.2 Monocytes % 4.7 Eosinophils % 0.0 Basophils % 0.0 Absolute Neutrophils (1.2-6.7) k/cumm 5.91 Absolute Lymphocytes (1.2-3.4) k/cumm 0.41 L Absolute Monocytes (0.11-0.7) k/cumm 0.31 Absolute Eosinophils (0.0-0.7) k/cumm 0.00 Absolute Basophils (0.0-0.2) k/cumm 0.00 PT (9.3-11.0) sec INR (0.9-1.1) APTT (21.0-31.4) sec Sodium (136-145) mmol/L 128 L Potassium (3.5-5.1) mmol/L 4.8 Chloride (98-107) mmol/L 95 L Carbon Dioxide (21.0-32.0) mmol/L 26.4 Anion Gap (3-11) mmol/L 6.6 BUN (7-18) mg/dL 26 H Creatinine (0.70-1.30) mg/dL 1.35 H Estimated GFR/1.73 m2 (mL/min/1.73m2) 51.52 Glucose (74-106) mg/dL 361 H Lactate (0.6-1.4) mmol/L 2.1 H* Calcium (8.5-10.1) mg/dL 8.6 Total Bilirubin (0.2-1.0) mg/dL 2.6 H AST (15-37) U/L 32 ALT (16-63) U/L 43 Alkaline Phosphatase (46-116) U/L 134 H Creatine Kinase (39-308) U/L Total Protein (6.4-8.2) g/dL 5.6 L Albumin (3.4-5.0) g/dL 2.1 L Lipase (73-393) U/L 199 Urine Color (Yellow) Urine Clarity (Clear) Urine pH (5-8) Ur Specific [place] (1.005-1.025) Urine Protein (Negative) mg/dL Urine Ketones (Negative) mg/dL Urine Blood (Negative) Urine Nitrite (Negative) Urine Bilirubin (Negative) Urine Urobilinogen (Up TO 0.2) EU/dL Ur Leukocyte Esterase (Negative) Urine RBC (0-2) HPF Urine WBC (0-5) HPF Ur Epithelial Cells (Negative) HPF Urine Crystals (Negative) HPF Urine Bacteria (Negative) HPF Urine Casts (Negative) LPF Urine Mucus (Negative) Ur Culture Indicated? Urine Glucose (Negative) mg/dL Range/Units 06/08/19 06/08/19 06/08/19 16:30 16:50 17:25 WBC (4.4-10.8) k/cumm RBC (4.50-6.00) m/cumm Hgb (13.5-17.5) g/dL Hct (40.0-50.0) % MCV (80-95) fL MCH (27.0-33.0) pg MCHC (32.0-36.0) g/dL RDW (11.8-14.1) % Plt Count (130-400) x1000/uL MPV (8.0-11.0) fL Immature Gran % % Neutrophils % Lymphocytes % Monocytes % Eosinophils % Basophils % Absolute Neutrophils (1.2-6.7) k/cumm Absolute Lymphocytes (1.2-3.4) k/cumm Absolute Monocytes (0.11-0.7) k/cumm Absolute Eosinophils (0.0-0.7) k/cumm Absolute Basophils (0.0-0.2) k/cumm PT (9.3-11.0) sec 44.8 H D INR (0.9-1.1) 4.6 H* D APTT (21.0-31.4) sec 41.8 H Sodium (136-145) mmol/L Potassium (3.5-5.1) mmol/L Chloride (98-107) mmol/L Carbon Dioxide (21.0-32.0) mmol/L Anion Gap (3-11) mmol/L BUN (7-18) mg/dL Creatinine (0.70-1.30) mg/dL Estimated GFR/1.73 m2 (mL/min/1.73m2) Glucose (74-106) mg/dL Lactate (0.6-1.4) mmol/L Calcium (8.5-10.1) mg/dL Total Bilirubin (0.2-1.0) mg/dL AST (15-37) U/L ALT (16-63) U/L Alkaline Phosphatase (46-116) U/L Creatine Kinase (39-308) U/L Total Protein (6.4-8.2) g/dL Albumin (3.4-5.0) g/dL Lipase (73-393) U/L Urine Color (Yellow) Oilve Urine Clarity (Clear) Clear Urine pH (5-8) 5.5 Ur Specific [place] (1.005-1.025) 1.020 Urine Protein (Negative) mg/dL 30 H Urine Ketones (Negative) mg/dL Negative Urine Blood (Negative) Large H Urine Nitrite (Negative) Negative Urine Bilirubin (Negative) Negative Urine Urobilinogen (Up TO 0.2) EU/dL 1.0 H Ur Leukocyte Esterase (Negative) Negative Urine RBC (0-2) HPF 5-10 H Urine WBC (0-5) HPF 3-5 Ur Epithelial Cells (Negative) HPF Few Urine Crystals (Negative) HPF Negative Urine Bacteria (Negative) HPF Negative Urine Casts (Negative) LPF Negative Urine Mucus (Negative) Negative Ur Culture Indicated? C&s done as ordered Urine Glucose (Negative) mg/dL 500 H POC Strep Test-OMAR(Rapid) Start: 06/08/19 16:48 Freq: .Rapid Strep Test Status: Active Protocol: Document 06/08/19 16:49 MMQ (Rec: 06/08/19 16:49 MMQ ER10) Strep test-OMAR(Rapid)-POC POC-Strep test-OMAR (Rapid) Negative POC-Strep test-OMAR (Rapid) Negative
--- NOTE | 2019-06-08 20:58 | DI.VRAD_ITS ---
PROCEDURE INFORMATION: Exam: CT Chest With Contrast Exam date and time: 06/08/2019 7:12 PM Age: 73 years old Clinical indication: Injury or trauma; Initial encounter; Luq; Blunt trauma (contusions or hematomas); Patient HX: Fall, left-sided rib/abd pain; Additional info: On coumadin TECHNIQUE: Imaging protocol: Computed tomography of the chest with intravenous contrast. Other technique: Study limited due to motion degradation of multiple images. COMPARISON: No relevant prior studies available. FINDINGS: Thyroid: Substernal extension left lobe of thyroid. 1.3 is cm nodule inferiorly in left lobe. Lungs: The No parenchymal consolidation. Basilar subsegmental atelectasis. Central airways patent. Pleural space: No pneumothorax. Minute left pleural effusion. Heart: Status post aortic valve replacement. There are coronary artery calcifications. No No pericardial effusion. Aorta: Thoracic aorta dilated to 4.5 cm in ascending portion. No thoracic aortic dissection. No contrast extravasation. Lymph nodes: Unremarkable. No enlarged lymph nodes. Bones/joints: Median sternotomy well-healed. No fracture.The spine demonstrates mild degenerative changes at multiple levels. Soft tissues: Unremarkable. IMPRESSION: 1. Motion limited study. 2. No acute findings. 3. Nodule in left lobe of thyroid does not require follow-up. 4. Ascending aorta dilated to 4.5 cm. 5. Coronary artery disease. 6. Left pleural effusion. PROCEDURE INFORMATION: Exam: CT Abdomen And Pelvis With Contrast Exam date and time: 06/08/2019 7:12 PM Age: 73 years old Clinical indication: Injury or trauma; Initial encounter; Luq; Blunt trauma (contusions or hematomas); Patient HX: Fall, left-sided rib/abd pain; Additional info: On coumadin TECHNIQUE: Imaging protocol: Computed tomography of the abdomen and pelvis with intravenous contrast. COMPARISON: No relevant prior studies available. FINDINGS: Liver: Too small to characterize 4 mm area of diminished enhancement left lobe of liver. Normal in size. Gallbladder and bile ducts: Normal. No calcified stones. No ductal dilation. Pancreas: Normal. No ductal dilation. Spleen: Splenomegaly. Adrenals: Normal. No mass. Kidneys and ureters: There is mild perinephric stranding. No hydronephrosis. Both kidneys concentrate and excrete contrast. Stomach and bowel: Unremarkable. No obstruction. No mucosal thickening. Appendix: No evidence of appendicitis. Intraperitoneal space: Unremarkable. No free air. No significant fluid collection. Vasculature: Atherosclerosis. No contrast extravasation. No abdominal aortic aneurysm. No aortic dissection. Lymph nodes: Unremarkable. No enlarged lymph nodes. Bladder: Unremarkable as visualized. Reproductive: Unremarkable as visualized. Bones/joints: Mild anterior subluxation of L3 and L4 with respect to L2 and L5. Nondisplaced fracture through anteroinferior aspect L1. The spine demonstrates mild degenerative changes at multiple levels. Soft tissues: Bilateral fat containing inguinal hernias.There is an uncomplicated fat-containing umbilical hernia. IMPRESSION: 1. Motion limited study. 2. Nondisplaced fracture through anteroinferior aspect L1. 3. Splenomegaly. 4. Perinephric stranding of fat which could have several possible etiologies including scarring, third spacing of fluid, inflammatory process or infection. Dictated and Authenticated by: Yared Guevara MD. Ordering:TIM Ward MD
[2019-06-08 21:29] LABS: Lactate 1.3 mmol/L (0.6-1.4)
[2019-06-08] MEDS: Acetaminophen 500 MG TAB 1000 MG PO (23:27)
[2019-06-09] VITALS (10 sets, daily range): BP systolic 101–115; BP diastolic 54–73; PULSE 56–93; RESP 15–37; O2SAT 94–99
--- NOTE | 2019-06-09 00:09 | NUR.NOTE ---
06/08/19 1115: technical publications writer noted afib on monitor, pt with no sx voiced or noted. PA notified, EKG complete which revealed afib with controlled rate. No distress noted at this time.
--- NOTE | 2019-06-09 00:26 | NUR.NOTE ---
06/09/19 @ 0015-BP 115/64, insurance underwriter did not begin infusing levophed due to VS WNL. PA notified with no new orders recieved. Nursing Note:
[2019-06-09 16:42] LABS: CK 80 IU/L (38-397)
--- NOTE | 2019-06-10 08:20 | NUR.NOTE ---
Patient transferred to [facility], Positive BC report faxed to ICU [phone].Nursing Note:
--- NOTE | 2019-06-11 10:49 | NUR.NOTE ---
Corrected gram stain from BC bottles faxed to [facility] [place], .Nursing Note:
== END 2019-06-09 01:15 | disposition short-term general hospital (02) ==
PROVIDERS: Emergency Provider Physician Assistant; PCP Internal Medicine
DX: R50.9 Fever, unspecified (principal); R53.81 Other malaise; R53.1 Weakness; B37.0 Candidal stomatitis; J02.9 Acute pharyngitis, unspecified; R79.1 Abnormal coagulation profile; I48.91 Unspecified atrial fibrillation; R10.12 Left upper quadrant pain; R10.32 Left lower quadrant pain; Z79.01 Long term (current) use of anticoagulants
CPT/HCPCS: 36415; 36416; 74177; 80053; 82550; 82962; 83690; 87040; 87077; 87449; 87880; 93005; 96361; 96365; 96366; 96367; 96375; 96376; 99285; 70470; 71260; 81003; 81015; 83605; 85025; 85610; 85730; 87081; 87086; 93010; J2270; J2543; J3490; Q9967

== ENCOUNTER 2019-09-24 01:32 | Outpatient (CLI) | payer MEDICARE, SELFPAY ==
[2019-09-24 12:05] LABS: Abs Immature Grans 0.01 k/cumm (0.0-0.09); Absolute Basophil Count 0.02 k/cumm (0.0-0.2); Absolute Eosinophil Count 0.21 k/cumm (0.0-0.7); Absolute Lymphocyte Count 0.65 k/cumm (1.2-3.4); Absolute Monocyte Count 0.23 k/cumm (0.11-0.7); Absolute Neutrophil Count 2.48 k/cumm (1.2-6.7); Basophils % 0.6; Eosinophils % 5.8; HCT 42.4 % (40.0-50.0); HGB 13.9 g/dL (13.5-17.5); Immature Grans % 0.3 %; Lymphocytes % 18.1; Mean Corp. HGB Concentration 32.8 g/dL (32.0-36.0); Mean Corpuscular Hemoglobin 28.4 pg (27.0-33.0); Mean Corpuscular Volume 86.7 fL (80-95); Monocytes % 6.4; Neutrophils % 68.8; Platelet Count 139 x1000/uL (130-400); RBC 4.89 m/cumm (4.50-6.00); RBC Distribution Width 15.3 % (11.8-14.1)
[2019-09-24 13:08] LABS: ALT 38 U/L (16-63); AST 35 U/L (15-37); Albumin 4.1 g/dL (3.4-5.0); Alkaline Phosphatase 127 U/L (46-116); Anion Gap 6.4 mmol/L (3-11); BUN 17 mg/dL (7-18); Bilirubin, Total 1.3 mg/dL (0.2-1.0); C-Reactive Protein 0.08 mg/dL (0.0-0.3); CO2 29.6 mmol/L (21.0-32.0); CREATININE 1.06 mg/dL (0.70-1.30); Calcium 9.8 mg/dL (8.5-10.1); Chloride 103 mmol/L (98-107); Glucose 149 mg/dL (74-106); Potassium 4.9 mmol/L (3.5-5.1); Sodium 139 mmol/L (136-145); Total Protein 6.8 g/dL (6.4-8.2)
== END 2019-09-24 01:52 ==
PROVIDERS: PCP Internal Medicine; Visit Provider Internal Medicine Infectious Disease
DX: Z79.899 Other long term (current) drug therapy (principal); Z79.2 Long term (current) use of antibiotics; R69 Illness, unspecified
CPT/HCPCS: 80053; 85025; 85610; 86140

== ENCOUNTER 2020-03-20 13:19 | Emergency (ER) | payer MEDICARE, SELFPAY ==
--- NOTE | 2020-03-20 13:24 | ED.GENADUL_ITS ---
Discharge Plan Disposition Patient Disposition: HOME Discharge Details Clinical Impression: Anterior epistaxis Primary Care Provider: Brendan Bledsoe ED Provider: José Luis Curire Home Meds and New Rx's Prescriptions: Continued aspirin [Aspirin Low-Strength] 81 MG tablet,chewable 81 mg PO DAILY RF: 0 Eliquis 5 mg tablet 5 mg PO BID RF: 0 metoprolol tartrate 100 mg Tablet 100 mg PO BID RF: 0 simvastatin 80 mg Tablet 40 mg PO DAILY RF: 0 timolol 0.5 % Drops 1 drp ophthalmic (eye) HS RF: 0 brimonidine 0.2 % Drops 1 drp ophthalmic (eye) HS RF: 0 Discharge Instructions Instructions: Nosebleed (ED) Additional Instructions: Bleeding was easily controlled using pressure, no additional packing is required. Please watch for new or worsening symptoms and return to the ER for any concerns. As we discussed, you will be discharged home with the nasal clamp. You can certainly use this if you have another mild nosebleed. As we also discussed I recommend that you return to the ER for new or worsening symptoms, or if bleeding persists after 20 minutes of pressure. Otherwise contacting your primary care provider for outpatient evaluation and potential ENT referral is reasonable. Medical Decision Making 74-year-old gentleman, currently on a baby aspirin daily as well as Eliquis, presents for a right sided anterior nosebleed that occurred roughly 1 hour ago when he accidentally nicked himself with his razor while trimming his nose hair. Patient states that it is not bleeding as much as it was earlier but it has not resolved completely. He denies any pain, blood in his mouth or throat, or any other symptoms. During triage he was given a nasal clamp and by the time I evaluated the patient and remove the clamp he had no active bleeding. He appears well, nontoxic. Will leave the clamp in place for the next 20 minutes or so, and then reassess the patient. There are no signs of a posterior epistasis. Given there is known trauma with a razor, patient is on Eliquis, I do not believe that routine laboratory values or coags will likely be beneficial. Patient was observed in the ER for over 45 minutes. Blood pressure trending downward nicely without any therapy. Upon reevaluation he remains asymptomatic. The nasal clamp was once again removed and there is no active bleeding from his right nare, left nare, no blood in his oropharynx. He did discuss options. Certainly this could be cauterized as I can see the small source of bleeding caused by the razor. Simple pressure has controlled the bleeding and therefore will not initiate any more aggressive therapy. Patient does understand that if the nosebleed does return that cauterization, packing, etc. may be indicated. He will be discharged home with a nasal clamp and we discussed the proper use of nasal clamp. If he has a small amount of trickling or bleeding again he will apply the clamp for roughly 20 minutes and if it continues to bleed he will return to the ER. Patient has no additional questions or concerns and upon discharge he is asymptomatic Medical Records Medical records reviewed: Yes I reviewed the patient's medical records. HPI General Mode of arrival: ambulatory . Date/Time Provider Initiated Documentation: 03/20/20 13:20 . Limitations to Documentation: no limitations . Information obtained by: patient . HPI Narrative: This is a 74-year-old gentleman presenting to the ER today reporting a right-sided anterior nosebleed. He was trimming his nose hairs about 1 hour ago when he nicked his nose with a razor causing the bleeding. He states that he has been unable to bleeding completely. Just a mild trickle from the right nostril. No blood in his mouth or down the back of his throat. Patient has a past medical history of aortic stenosis, aortic valve replacement, brain tumor, he is on Eliquis and takes a baby aspirin daily. He used to be on Coumadin back in June but they have since changed his medication. He tells me that he has had an occasional nosebleed while on anticoagulation medications but today he knows exactly how and why the bleeding started. He is otherwise asymptomatic. Denies recent illness or trauma. Denies headache, chest pain, shortness of breath, abdominal pain, nausea, vomiting. Related Data Home Medications Medication Instructions Recorded Confirmed aspirin [Aspirin Low-Strength] 81 mg PO DAILY 11/15/17 03/20/20 brimonidine 1 drp OPHTHALMIC (EYE) HS 06/08/19 03/20/20 metoprolol tartrate 100 mg PO BID 06/08/19 03/20/20 simvastatin 40 mg PO DAILY 06/08/19 03/20/20 timolol 1 drp OPHTHALMIC (EYE) HS 06/08/19 03/20/20 Eliquis 5 mg PO BID 03/20/20 03/20/20 Allergies Allergy/AdvReac Type Severity Reaction Status Date / Time No Known Allergies Allergy Unverified 03/20/20 13:29 General MARIANELA: 2 Review of Systems Constitutional Constitutional: Denies fever(s) and Denies headache(s) ENT Ears, Nose, Mouth, and Throat: Denies headache(s), Denies nasal congestion and Denies nose pain Cardiovascular Cardiovascular: Denies chest pain and Denies dyspnea Respiratory Respiratory: Denies dyspnea Neurologic Neurologic: Denies headache(s) Hematologic/Lymphatic Hematologic/Lymphatic: Reports easy bleeding and Reports easy bruising [facility] Medical History (Updated 03/20/20 @ 14:06 by MEHUL Gale) Aortic stenosis Brain tumor (benign) Surgical History H/O aortic valve replacement Status post craniectomy 1960 Social History Smoking/Tobacco Use Status: Never Alcohol Intake: never Drug use: Never Substance use type: does not use Do you feel safe at home: Yes Do you feel safe in your relationship?: Yes Exam Const General: cooperative, healthy appearing, comfortable and no acute distress Orientation: alert and awake HENNH Head: normal to inspection, normocephalic and atraumatic General nose exam: external nose normal, septum normal and epistaxis on the right anterior source and dried blood present; no active bleeding Face and sinus: normal facial exam Mouth: oral mucosae normal and moist mucous membranes Throat: posterior oropharynx normal Eyes Conjunctivae: conjunctivae normal Sclera: abnormal sclerae Neck Neck: normal visual inspection, full ROM, trachea midline and supple Resp Effort & Inspection: normal respiratory effort and able to speak in complete sentences Auscultation: clear to auscultation bilaterally Cardio Rate: regular rate Rhythm: regular rhythm Skin General skin exam: no rashes or lesions noted Neuro General: patient alert, patient awake, moves all extremities and no focal motor deficits Sensory Exam: no sensory deficits noted Psych Appearance: grossly normal Mental Status: mental status grossly normal
[2020-03-20 13:25] VITALS: BP 160/102; PULSE 76; RESP 16; TEMP 36.6; O2SAT 100
[2020-03-20 14:01] VITALS: BP 151/87; PULSE 76; RESP 16
== END 2020-03-20 14:10 | disposition home or self-care (01) ==
PROVIDERS: Emergency Provider Physician Assistant; PCP Internal Medicine
DX: R04.0 Epistaxis (principal); Z79.01 Long term (current) use of anticoagulants
CPT/HCPCS: 30901

== ENCOUNTER 2020-09-14 03:22 | Outpatient (CLI) | payer MEDICARE, SELFPAY ==
[2020-09-14 10:26] LABS: Abs Immature Grans 0.02 10^3/uL (0.0-0.06); Absolute Basophil Count 0.02 10^3/uL (0.0-0.2); Absolute Lymphocyte Count 0.79 10^3/uL (1.2-3.4); Absolute Monocyte Count 0.32 10^3/uL (0.1-0.8); Absolute Neutrophil Count 2.87 10^3/uL (1.2-6.7); Basophils % 0.5; Eosinophils % 2.4; HCT 43.6 % (40.0-50.0); HGB 14.8 g/dL (13.5-17.5); Immature Grans % 0.5; Lymphocytes % 19.2; MCHC 33.9 % (32.0-36.0); MCV 97.3 fL (80-95); MPV 10.2 fL (8.0-11.0); Monocytes % 7.8; Neutrophils % 69.6; Nucleated RBC 0 %; Platelet Count 149 10^3/uL (130-400); RBC 4.48 10^6/uL (4.36-5.78); RDW 12.8 % (11.8-14.1); RDW-SD 45.6 fL; WBC 4.12 10^3/uL (4.4-10.8)
[2020-09-14 10:33] LABS: C-Reactive Protein 0.11 mg/dL (0.0-0.3)
== END 2020-09-14 03:23 | disposition home or self-care (01) ==
LOC: LBO 03:22
PROVIDERS: PCP Internal Medicine; Visit Provider Internal Medicine Infectious Disease
DX: M17.0 Bilateral primary osteoarthritis of knee; T82.6XXD Infection and inflammatory reaction due to cardiac valve prosthesis, subsequent encounter; T82.7XXD Infection and inflammatory reaction due to other cardiac and vascular devices, implants and grafts, subsequent encounter; Z79.2 Long term (current) use of antibiotics; Z79.899 Other long term (current) drug therapy
CPT/HCPCS: 36415; 87040; 85025; 86140

== ENCOUNTER 2022-11-29 11:35 | Outpatient (REF) | payer MEDICARE, SELFPAY ==
[2022-11-29 13:59] LABS: Abs Immature Grans 0.02 10^3/uL (0.0-0.06); Absolute Basophil Count 0.02 10^3/uL (0.0-0.2); Absolute Eosinophil Count 0.09 10^3/uL (0.0-0.7); Absolute Lymphocyte Count 0.45 10^3/uL (1.2-3.4); Absolute Monocyte Count 0.43 10^3/uL (0.1-0.8); Absolute Neutrophil Count 5.46 10^3/uL (1.2-6.7); Basophils % 0.3; Eosinophils % 1.4; HCT 42.9 % (40.0-50.0); HGB 14.4 g/dL (13.5-17.5); Immature Grans % 0.3; MCH 32.9 pg (27.0-33.0); MCHC 33.6 % (32.0-36.0); MCV 98 fL (80-95); MPV 10.3 fL (8.0-11.0); Monocytes % 6.6; Neutrophils % 84.4; Platelet Count 141 10^3/uL (130-400); RBC 4.38 10^6/uL (4.36-5.78); RDW 12.9 % (11.8-14.1); RDW-SD 46.5 fL; WBC 6.47 10^3/uL (4.4-10.8)
[2022-11-29 14:28] LABS: Anion Gap 7.7 mmol/L (3-11); BUN 21 mg/dL (7-18); C-Reactive Protein 3.33 mg/dL (0.0-0.3); CO2 28.3 mmol/L (21.0-32.0); CREATININE 1.3 mg/dL (0.70-1.30); Calcium 10.1 mg/dL (8.5-10.1); Chloride 102 mmol/L (98-107); Estimated GFR 55.88 (mL/min/1.73m2); Glucose 216 mg/dL (74-106); Potassium 4.4 mmol/L (3.5-5.1); Sodium 138 mmol/L (136-145); Uric Acid 6.5 mg/dL (3.5-7.2)
== END 2022-11-29 11:36 | disposition home or self-care (01) ==
LOC: NCHCN 11:35
PROVIDERS: PCP Internal Medicine; Visit Provider Family Medicine
DX: M10.9 Gout, unspecified (principal)
CPT/HCPCS: 80048; 84550; 85025; 86140

== ENCOUNTER 2023-05-09 09:08 | Emergency (ER) | payer OTHER, SELFPAY ==
[2023-05-09 09:22] VITALS: BP 184/95; PULSE 52; RESP 18; O2SAT 100
--- NOTE | 2023-05-09 09:30 | DI.RAD_ITS ---
Exam(s) XR CHEST 2V PA LATERAL EXAM: XR CHEST 2V PA LATERAL CLINICAL HISTORY: fall, echymosis right hip TECHNIQUE: 2D digital imaging was performed. COMPARISON: CR,XR XR CHEST 2V PA LATERAL from 06/02/2019 FINDINGS: HEART: Enlarged. Monitoring device. Status post aortic valve prosthesis. Aorta: Not ectatic. PULMONARY VASCULATURE: Normal. LUNGS: Clear. PLEURAL SPACE: No pleural effusion or pneumothorax. BONE:Sternal wires. No visible spine or rib fracture. Soft tissues: Unremarkable. IMPRESSION: No acute abnormality. DATA REPOSITORY: RADIATION DOSE DELIVERED:
--- NOTE | 2023-05-09 09:30 | DI.RAD_ITS ---
Exam(s) XR HIP RT COMPLETE AP PELVIS EXAM: XR HIP RT COMPLETE AP PELVIS CLINICAL HISTORY: fall, echymosis right hip. TECHNIQUE: 2D digital imaging was performed. Two views COMPARISON: No exams were available for comparison FINDINGS: BONES: No acute fracture is present. No bony destructive lesion is seen. JOINTS: No dislocation present. Mild bilateral hip joint space narrowing. Mild periarticular spurr ing right greater than left. SI joints and pubic symphysis show mild degenerative changes. SOFT TISSUE: Normal. IMPRESSION: No acute abnormality. DATA REPOSITORY: RADIATION DOSE DELIVERED:
--- NOTE | 2023-05-09 09:43 | ED.GENADUL_ITS ---
Discharge Plan Disposition Patient Disposition: Home Discharge Details Clinical Impression: Hematoma, Fall Primary Care Provider: Brendan Bledsoe ED Provider: Scarlet Rouse Home Meds and New Rx's Prescriptions: No Action aspirin [Aspirin Low-Strength] 81 MG tablet,chewable 81 mg PO DAILY Eliquis 5 mg tablet 5 mg PO BID Patient Comments: TK 1 T PO BID metoprolol tartrate 100 mg Tablet 100 mg PO BID simvastatin 80 mg Tablet 40 mg PO DAILY timolol 0.5 % Drops 1 drp ophthalmic (eye) HS brimonidine 0.2 % Drops 1 drp ophthalmic (eye) HS Discharge Instructions Instructions: Hematoma (ED) Additional Instructions: Tylenol over the counter for pain, follow the directions on the bottle. Return to the emergency department for new or worsening symptoms including new/different/worse pain, inability to walk, or if you have any other concerns. Referrals: Brendan Bledsoe MD [Primary Care Provider] - Medical Decision Making 77yo M with hx of HTN, AVR, on eliquis, presenting with right hip pain slipping on ice two days ago and falling into his right side. No HS or LOC. Ambulating without difficultly. Hypertensive on arrival, vital signs otherwise reassuring. On exam he has echymosis to right hip and a small abrasion to his right forearm. Low suspicion for serious injury, abdominal trauma, or fracture; will not get CT or labs, out of abundance of caution will order plain films. Given tylenol for pain. CXR independently reviewed, no displaced fractures on my view, agree with radiology read below. Pelvis/hip films independently reviewed, no displaced fracture on my view, agree with radiology read below. On reassessment he remains well appearing, pain is tolerable. Discharged home; discharge instructions including return precautions were reviewed with patient who verbalized understanding. All questions were answered and they are in full agreement with the plan. Imaging Data Radiologic Study: Imaging: X-Ray Radiologist's impression: IMPRESSION: No acute abnormality. Radiologic Study #2: Imaging: X-Ray Radiologist's impression: IMPRESSION: No acute abnormality. HPI General Mode of arrival: ambulatory . Date/Time Provider Initiated Documentation: 05/09/23 09:19 . Limitations to Documentation: no limitations . Information obtained by: patient . HPI Narrative: 77yo M with hx of HTN, AVR, on eliquis, presenting with right hip pain after fall. Slipped on ice two days ago and fell into his right side. Did not strike his head or lose consciousness. Was able to stand up and walk after the event. Since then has had persistent right sided hip pain, moderate, improved by home aspirin, worse with ambulation. No numbness, tingling, or weakness. No pain elsewhere. He is otherwise in his usual state of health. Related Data Home Medications Medication Instructions Recorded Confirmed aspirin 81 mg chewable tablet 81 mg PO DAILY 11/15/17 05/09/23 (Aspirin Low-Strength) brimonidine 0.2 % eye drops 1 drp ophthalmic (eye) HS 06/08/19 05/09/23 metoprolol tartrate 100 mg tablet 100 mg PO BID 06/08/19 05/09/23 simvastatin 80 mg tablet 40 mg PO DAILY 06/08/19 05/09/23 timolol 0.5 % eye drops 1 drp ophthalmic (eye) HS 06/08/19 05/09/23 apixaban 5 mg tablet (Eliquis) 5 mg PO BID 03/20/20 05/09/23 Allergies Allergy/AdvReac Type Severity Reaction Status Date / Time No Known Allergies Allergy Unverified 05/09/23 09:30 General Stated Complaint: Nk/Back Pain MARIANELA: 3 Review of Systems Narrative: see HPI PFSH All Active Problems (Updated 05/09/23 @ 10:23 by Scarlet Rouse MD) Fall (Acute) Hematoma (Acute) Medical History (Updated 05/09/23 @ 10:23 by Scarlet Rouse MD) Brain tumor (benign) Aortic stenosis Surgical History H/O aortic valve replacement Status post craniectomy 1960 Social History Smoking/Tobacco Use Status: Never Smoking risk assessment performed?: Yes Alcohol Intake: current Alcohol Intake frequency: a few times a month Drug use: Never Substance use type: does not use Housing: house Do you feel safe at home: Yes Do you feel safe in your relationship?: Yes Exam Narrative Exam Narrative: GENERAL: Alert, no acute distress. SKIN: Warm and well perfused. HEAD: Atraumatic without edema, discoloration or evidence of trauma. NECK: Trachea midline. No discolorations or edema. CV: Regular, Normal s1 and s2. No murmurs, rubs, or gallops. PV: Radial pulses 2+ bilaterally and symmetric. Dorsalis pedis pulses 1+ bilaterally and symmetric. CHEST: No abrasions or ecchymosis. Chest symmetric with respirations. No chest wall tenderness. Lungs are clear to auscultation bilaterally. ABDOMEN: No ecchymosis or abrasions. Soft, nondistended, nontender. BACK: No abrasions, skin openings, or ecchymosis. Spine without bony tenderness, no step offs. PELVIC: Pelvis stable, nontender to lateral compression. Right lateral hip echymosis, mildly tender to palpation. MSK: No gross deformities or discolorations or lesions. Tolerates full range of motion of extremities without tenderness. Small abrasion to right forearm. NEURO: Alert and oriented to person, place, and time. GCS 15. Sensation grossly intact. Moves all extremities freely against gravity. Ambulates with steady gait. Course Vital Signs Vital signs: Vital Signs Pulse 52 L 05/09/23 09:22 Respiratory Rate 18 05/09/23 09:22 Blood Pressure 184/95 H 05/09/23 09:22 Pulse Oximetry 100 05/09/23 09:22 Pulse 52 L 05/09/23 09:22 Respiratory Rate 18 05/09/23 09:22 Respiratory Effort Normal, Non-Labored 05/09/23 09:34 Blood Pressure 184/95 H 05/09/23 09:22 Pulse Oximetry 100 05/09/23 09:22 PAWSS Have you Been Recently Intoxicated or Drunk Within the Last 30 days?: No Have you Ever Experienced Previous Episodes of Alcohol Withdrawal?: No Have you ever Experienced Withdrawal Seizures?: No Have you ever Experienced Delirium Tremens(DT)s?: No Have you ever undergone Alcohol Rehabilitation Treatment (i.e, inpt ot outpatient treatment programs)?: No Have you ever Experienced Blackouts?: No Have you ever Combined Alcohol with other Downers within the last 90 days?: No Have you ever Combined Alcohol with any other Substance of Abuse during the last 90 days?: No Positive Blood Alcohol level on Presentation? [PCS.BAL]: No Evidence of Increased Autonomic Activity (i.e. HR>120, tremor, sweating, agitation, nausea)?: No Result: 0
[2023-05-09] MEDS: Acetaminophen 500 MG TAB 1000 MG PO (09:50)
[2023-05-09 10:28] VITALS: BP 154/121; PULSE 53; O2SAT 99
[2023-05-09 10:39] VITALS: BP 176/106; PULSE 53; RESP 16; O2SAT 98
== END 2023-05-09 10:43 | disposition home or self-care (01) ==
PROVIDERS: Emergency Provider Student in an Organized Health Care Education/Training Program; PCP Internal Medicine
DX: S70.01XA Contusion of right hip, initial encounter (principal); M54.50 Low back pain, unspecified; Z79.82 Long term (current) use of aspirin; Z95.2 Presence of prosthetic heart valve; I10 Essential (primary) hypertension
CPT/HCPCS: 99283; 71046; 73502